=== PATIENT | female | born 1990 | race African-American/Black ===

== ENCOUNTER 2021-03-24 05:38 | Emergency (ER) | payer SELFPAY ==
[2021-03-24] MEDS ORDERED: Ibuprofen 800 MG TAB ONE (05:56)
[2021-03-24] MEDS ORDERED: Acetaminophen 500 MG TAB ONE (05:56)
== END 2021-03-24 07:21 | disposition home or self-care (01) ==
LOC: ERS 05:38
DX: R50.9 Fever, unspecified (principal); M79.10 Myalgia, unspecified site; I10 Essential (primary) hypertension; Z87.891 Personal history of nicotine dependence
CPT/HCPCS: 99283